=== PATIENT | female | born 1995 | race Caucasian/White ===

== ENCOUNTER 2020-12-05 11:30 | Outpatient (RCR) | payer MEDICAID, SELFPAY ==
[2020-11-28 14:13] VITALS: BP 110/70
== END 2021-01-06 11:55 | disposition home or self-care (01) ==
LOC: HO.PTCHIC 11:30
PROVIDERS: PCP Family Medicine; Visit Provider Family Medicine
DX: R42 Dizziness and giddiness (principal)
CPT/HCPCS: 95992; 97110; 97161

== ENCOUNTER 2021-04-30 14:30 | Outpatient (RCR) | payer MEDICAID, SELFPAY | END 2021-04-30 14:55 | disposition home or self-care (01) | LOC: HO.OT 14:30 | PROVIDERS: PCP Family Medicine; Visit Provider Registered Nurse Community Health | DX: M25.641 Stiffness of right hand, not elsewhere classified (principal); R43.1 Parosmia; H53.8 Other visual disturbances | CPT/HCPCS: 97110; 97165; 97760 ==

== ENCOUNTER 2021-09-25 19:16 | Emergency (ER) | payer MEDICAID, SELFPAY ==
[2021-09-25 19:36] VITALS: BP 117/70; PULSE 99; RESP 16; TEMP 36.3; O2SAT 99; BMI 31.4
[2021-09-25 20:00] LABS: MANUAL DIFF FLAG NO
[2021-09-25 20:02] LABS: Basophils Percent Auto 0.1 % (0-2); Eosinophils Percent Auto 0.6 % (0-4); Hematocrit 42.5 % (37.0-47.0); Hemoglobin 14.3 g/dl (12.0-16.0); Imm Gran Abs Auto 0.02 X10*3/uL (0.00-0.03); Imm Gran Pct Auto 0.3 % (0.0-0.4); Lymphocytes Absolute Auto 0.5 X10*3/uL (1.2-4.9); Lymphocytes Percent Auto 7.9 % (20-40); Mean Corpuscular HGB Conc 33.6 g/dl (31.0-35.0); Mean Corpuscular Hemoglobin 29.4 pg (27.0-33.0); Mean Corpuscular Volume 87.3 fL (80.0-98.0); Mean Platelet Volume 10.3 fL (9.4-12.3); Monocytes Absolute Auto 0.4 X10*3/uL (0.1-1.2); Monocytes Percent Auto 5.8 % (2-11); Neutrophils Absolute Auto 5.7 x10*3/uL (2.0-8.3); Neutrophils Percent Auto 85.3 % (45-73); Platelet Count 274 X10*3/uL (160-400); Red Blood Count 4.87 X10*6/uL (4.20-5.50); Red Cell Distribution Width 12.4 % (11.0-16.0); White Blood Count 6.7 X10*3/uL (4.8-10.8)
[2021-09-25 20:16] LABS: Alanine Aminotransferase 11 U/L (0-31); Albumin Level 4.1 g/dL (3.5-5.0); Alkaline Phosphatase 81 U/L (39-117); Anion Gap 12 (12-20); Aspartate Amino Transferase 17 U/L (5-31); Bilirubin Direct 0.2 mg/dL (0.0-0.5); Bilirubin Total 0.4 mg/dL (0.0-1.0); Blood Urea Nitrogen 13 mg/dL (9-16); Carbon Dioxide 26 mmol/L (22-29); Chloride 103 mmol/L (96-108); Creatinine Clr Calc Pharmacy 116.6; Estimated Glomerular Filt Rate > 60; Glucose Random 116 mg/dL (60-115); Lipase 9 U/L (8-78); Sodium 137 mmol/L (135-145); Total Protein 7.7 g/dL (6.5-8.0)
[2021-09-25 20:19] LABS: COVID-19 Test Negative (Negative)
== END 2021-09-26 01:31 | disposition left against medical advice (07) ==
PROVIDERS: Emergency Provider Emergency Medicine
DX: R11.2 Nausea with vomiting, unspecified (principal); Z20.822 Contact with and (suspected) exposure to COVID-19; R19.7 Diarrhea, unspecified
CPT/HCPCS: 36415; 80053; 82248; 83690; 85025; 87635; 99282; 99283

== ENCOUNTER → 2022-02-12 14:04 | Outpatient (BNVA) | payer MEDICAID, SELFPAY | PROVIDERS: Visit Provider Advanced Practice Midwife | DX: Z34.90 Encounter for supervision of normal pregnancy, unspecified, unspecified trimester (principal) | CPT/HCPCS: 81025; 99212 ==

== ENCOUNTER 2022-02-19 10:27 | Outpatient (REF) | payer MEDICAID, SELFPAY ==
--- NOTE | ~2022-02-19 | US_ITS ---
EXAMINATION: OBSTETRICAL ULTRASOUND, FIRST TRIMESTER HISTORY: 26-year-old at 10.2 weeks of gestation LMP: 12/09/2021 COMPARISON: None TECHNIQUE: Real time transabdominal imaging with color and M-mode Doppler. FINDINGS: A single, live IUP CRL of 37 mm c/w 10.5wks is noted. Heart Rate: 163 beats per minute. Both maternal ovaries are seen and appear normal. GESTATIONAL AGE: 1. GA from LMP: 10.2 wks 2. GA from AUA: 10.5 wks ESTIMATED DATE OF DELIVERY: 1. IVELISSE from LMP: 09/15/2022 2. IVELISSE from AUA: 09/12/2022 US/US OB <= 14 weeks fetus IMPRESSION: 1. A single live IUP 2. Size equals dates 3. Normal ovaries Thank you very much for this referral. This note was generated with a voice recognition program. Please excuse any errors which may have been overlooked during my review of this note. Sometimes these errors may affect the content or meaning of a given sentence.
== END 2022-02-19 10:28 | disposition home or self-care (01) ==
LOC: HO.US 10:27
PROVIDERS: PCP Family Medicine; Visit Provider Advanced Practice Midwife
DX: Z34.91 Encounter for supervision of normal pregnancy, unspecified, first trimester (principal); Z3A.10 10 weeks gestation of pregnancy
CPT/HCPCS: 76801

== ENCOUNTER → 2022-02-26 14:07 | Outpatient (BNVA) | payer MEDICAID, SELFPAY | PROVIDERS: PCP Family Medicine; Visit Provider Advanced Practice Midwife | DX: Z34.91 Encounter for supervision of normal pregnancy, unspecified, first trimester (principal) | CPT/HCPCS: 99212 ==

== ENCOUNTER 2022-03-05 11:31 | Outpatient (REF) | payer MEDICAID, SELFPAY ==
--- NOTE | ~2022-03-05 | US_ITS ---
EXAMINATION: OBSTETRICAL ULTRASOUND, FIRST TRIMESTER HISTORY: 26-year-old at 12.2 weeks of gestation NT screening COMPARISON: 02/19/2022 TECHNIQUE: Real time transabdominal imaging with color and M-mode Doppler. FINDINGS: A single, live IUP CRL of 63.9 mm c/w 12.6wks is noted. Heart Rate: 150 beats per minute. Normal yolk sac seen. NT was 1.18.mm. NB Present The embryo appears sonographically wnl for this GA. Both maternal ovaries are seen and appear normal. GESTATIONAL AGE: 1. Established GA: 12.2 wks 2. GA from [facility]: 12.6 wks ESTIMATED DATE OF DELIVERY: 1. Established IVELISSE: 09/15/2022 2. IVELISSE from [facility]: 09/11/2022 US/US OB 1T nuc measure IMPRESSION: 1. A single live IUP 2. Size equals dates 3. NT of 1.18 mm I reviewed the ultrasound findings along with significance of NT measurement. The NT of less than 3mm is generally reassuring. However, the sensitivity for T21 detection is only 60%. She already had N IPT which showed low risk.
== END 2022-03-05 11:32 | disposition home or self-care (01) ==
LOC: HO.US 11:31
PROVIDERS: Visit Provider Advanced Practice Midwife
DX: Z34.91 Encounter for supervision of normal pregnancy, unspecified, first trimester (principal); Z3A.12 12 weeks gestation of pregnancy
CPT/HCPCS: 76813

== ENCOUNTER 2022-03-16 14:09 | Outpatient (REF) | payer MEDICAID, SELFPAY ==
[2022-03-16 16:48] LABS: Hematocrit 39.3 % (37.0-47.0); Hemoglobin 13.3 g/dl (12.0-16.0); Mean Corpuscular HGB Conc 33.8 g/dl (31.0-35.0); Mean Corpuscular Hemoglobin 29.2 pg (27.0-33.0); Mean Corpuscular Volume 86.4 fL (80.0-98.0); Mean Platelet Volume 10.1 fL (9.4-12.3); Platelet Count 266 X10*3/uL (160-400); Red Blood Count 4.55 X10*6/uL (4.20-5.50); White Blood Count 9.6 X10*3/uL (4.8-10.8)
[2022-03-16 17:12] LABS: Glucose 1 Hour PP 50gm Dose 86 mg/dL (60-140)
[2022-03-16 18:32] LABS: CT PCR NOT DETECTED (Not Detect.); NG PCR NOT DETECTED (Not Detect.)
[2022-03-16 18:40] LABS: Amphetamine Screen Urine Not Detected (Not Detect); Barbiturates, Urine Not Detected (Not Detect); Benzodiazepines Screen Urine Not Detected (Not Detect); Cannabinoid Screen Urine Not Detected (Not Detect); Cocaine Screen Urine Not Detected (Not Detect); Fentanyl, urine Not Detected (Not Detect); Opiate Screen Urine Not Detected (Not Detect); Phencyclidine Screen Urine Not Detected (Not Detect)
[2022-03-17 05:35] LABS: HBsAGNum1 0.15 S/CO (0.00-0.99); HIV AB/AG Nonreactive (Nonreactive); HIV Num 1 0.05 S/CO (0.00-0.99); Hepatitis B Surface Antigen Negative (Negative); ~HepC Num1 0.04 S/CO (0.00-0.79); ~Hepatitis C Antibody Nonreactive (Nonreactive)
[2022-03-17 05:57] LABS: Syphilis Screen Nonreactive (Nonreactive)
[2022-03-17 08:42] LABS: Varicella IgG Antibody <135.00 index
[2022-03-17 11:04] LABS: BV Int Neg Control Negative (Negative); BV Int Pos Control Positive (Positive)
[2022-03-17 17:37] LABS: Rubella IgG Antibody 1.04 Index
== END 2022-03-16 14:10 | disposition home or self-care (01) ==
LOC: HO.LAB 14:09
PROVIDERS: PCP Family Medicine; Visit Provider Advanced Practice Midwife
DX: Z34.91 Encounter for supervision of normal pregnancy, unspecified, first trimester (principal); Z3A.13 13 weeks gestation of pregnancy
CPT/HCPCS: 80307; 81003; 85027; 86762; 86780; 86787; 86803; 86850; 86900; 87086; 87340; 87389; 87480; 87491; 87510; 87591; 87660; 88142; 99212

== ENCOUNTER → 2022-04-15 13:35 | Outpatient (BNVA) | payer MEDICAID, SELFPAY | PROVIDERS: PCP Family Medicine; Visit Provider Obstetrics & Gynecology | DX: Z34.92 Encounter for supervision of normal pregnancy, unspecified, second trimester (principal) | CPT/HCPCS: 99212 ==

== ENCOUNTER → 2022-05-13 13:32 | Outpatient (BNVA) | payer MEDICAID, SELFPAY | PROVIDERS: PCP Family Medicine; Visit Provider Advanced Practice Midwife | DX: Z34.82 Encounter for supervision of other normal pregnancy, second trimester (principal); Z3A.22 22 weeks gestation of pregnancy | CPT/HCPCS: 99212 ==

== ENCOUNTER → 2022-06-10 13:15 | Outpatient (BNVA) | payer MEDICAID, SELFPAY | PROVIDERS: PCP Family Medicine; Visit Provider Advanced Practice Midwife | DX: O43.112 Circumvallate placenta, second trimester (principal); O44.22 Partial placenta previa NOS or without hemorrhage, second trimester; O09.292 Supervision of pregnancy with other poor reproductive or obstetric history, second trimester; Z3A.26 26 weeks gestation of pregnancy | CPT/HCPCS: 99212 ==

== ENCOUNTER 2022-06-24 13:09 | Outpatient (REF) | payer MEDICAID, SELFPAY ==
[2022-06-24 15:26] LABS: Hematocrit 37.2 % (37.0-47.0); Hemoglobin 12.4 g/dl (12.0-16.0); Mean Corpuscular HGB Conc 33.3 g/dl (31.0-35.0); Mean Corpuscular Hemoglobin 29.4 pg (27.0-33.0); Mean Corpuscular Volume 88.2 fL (80.0-98.0); Mean Platelet Volume 10.4 fL (9.4-12.3); Platelet Count 258 X10*3/uL (160-400); Red Blood Count 4.22 X10*6/uL (4.20-5.50); Red Cell Distribution Width 13.2 % (11.0-16.0); White Blood Count 11.5 X10*3/uL (4.8-10.8)
[2022-06-24 15:43] LABS: Glucose 1 Hour PP 50gm Dose 69 mg/dL (60-140)
[2022-06-25 09:23] LABS: Syphilis Screen Nonreactive (Nonreactive)
== END 2022-06-24 13:10 | disposition home or self-care (01) ==
LOC: HO.LAB 13:09
PROVIDERS: PCP Family Medicine; Visit Provider Advanced Practice Midwife
DX: O43.113 Circumvallate placenta, third trimester (principal); O44.23 Partial placenta previa NOS or without hemorrhage, third trimester; Z3A.28 28 weeks gestation of pregnancy
CPT/HCPCS: 36415; 82950; 85027; 86780; 99212

== ENCOUNTER → 2022-07-15 11:38 | Outpatient (BNVA) | payer MEDICAID, SELFPAY | PROVIDERS: PCP Family Medicine; Visit Provider Advanced Practice Midwife | DX: O43.113 Circumvallate placenta, third trimester (principal); O44.23 Partial placenta previa NOS or without hemorrhage, third trimester; Z3A.31 31 weeks gestation of pregnancy | CPT/HCPCS: 81003; 99212 ==

== ENCOUNTER → 2022-07-30 11:10 | Outpatient (BNVA) | payer MEDICAID, SELFPAY | PROVIDERS: PCP Family Medicine; Visit Provider Advanced Practice Midwife | DX: Z23 Encounter for immunization (principal); O43.113 Circumvallate placenta, third trimester; O44.23 Partial placenta previa NOS or without hemorrhage, third trimester; Z3A.33 33 weeks gestation of pregnancy | CPT/HCPCS: 81003; 90471; 90715; 99212 ==

== ENCOUNTER 2022-09-01 15:56 | Outpatient (REF) | payer MEDICAID, SELFPAY ==
[2022-09-02 15:00] LABS: CT PCR NOT DETECTED (Not Detect.); NG PCR NOT DETECTED (Not Detect.)
[2022-09-03 12:06] LABS: Allergic to Penicillin? No
== END 2022-09-01 15:57 | disposition home or self-care (01) ==
LOC: HO.LNP 15:56
PROVIDERS: PCP Family Medicine; Visit Provider Advanced Practice Midwife
DX: Z34.93 Encounter for supervision of normal pregnancy, unspecified, third trimester (principal); Z3A.38 38 weeks gestation of pregnancy
CPT/HCPCS: 0353U; 81003; 87150; 99212

== ENCOUNTER 2022-09-01 16:05 | Outpatient (REF) | payer MEDICAID, SELFPAY | END 2022-09-01 16:06 | disposition home or self-care (01) | LOC: HO.LAB 16:05 | PROVIDERS: Visit Provider Advanced Practice Midwife | DX: Z13.89 Encounter for screening for other disorder (principal) ==

== ENCOUNTER → 2022-09-09 13:15 | Outpatient (BNVA) | payer MEDICAID, SELFPAY | PROVIDERS: PCP Family Medicine; Visit Provider Advanced Practice Midwife | DX: Z34.83 Encounter for supervision of other normal pregnancy, third trimester (principal); Z3A.39 39 weeks gestation of pregnancy | CPT/HCPCS: 81003; 99212 ==

== ENCOUNTER → 2022-10-22 14:50 | Outpatient (BNVA) | payer MEDICAID, SELFPAY | PROVIDERS: PCP Family Medicine; Visit Provider Advanced Practice Midwife | DX: Z39.2 Encounter for routine postpartum follow-up (principal); Z39.1 Encounter for care and examination of lactating mother | CPT/HCPCS: 99212 ==

== ENCOUNTER 2023-06-15 13:22 | Outpatient (REF) | payer MEDICAID, SELFPAY ==
[2023-06-15 16:50] LABS: CT PCR NOT DETECTED (Not Detect.); NG PCR NOT DETECTED (Not Detect.)
[2023-06-16 13:55] LABS: BV Int Neg Control Negative (Negative); BV Int Pos Control Positive (Positive)
== END 2023-06-15 13:23 | disposition home or self-care (01) ==
LOC: HO.LNP 13:22
PROVIDERS: PCP Family Medicine; Visit Provider Advanced Practice Midwife
DX: Z39.1 Encounter for care and examination of lactating mother (principal); Z12.4 Encounter for screening for malignant neoplasm of cervix
CPT/HCPCS: 0353U; 87480; 87510; 87660; 99395

== ENCOUNTER 2023-06-15 13:22 | Outpatient (AMB) | payer MEDICAID, SELFPAY ==
--- NOTE | 2023-06-15 13:24 | A.OFFVIS_ITS ---
Intake Vital Signs 06/15/23 13:26 Height 5 ft 3 in Weight 188 lb BMI 33.3 BP 116/66 Intake Visit Reasons: MANAGEMENT ADVISOR annual exam Intake Note: no concerns Apprenticeship Representative Required: No Information Interpreted: non-clinical & clinical Party Plan Sales Director: Party Plan Sales Director Present (Deisy SOMMER) Accompanied by: Self / Same As Patient Allergies No Known Allergies [No Known Allergies*] Allergy (Verified 06/15/23 13:27) Is last menstrual period known: No () HPI MANAGEMENT ADVISOR annual exam HPI Details Patient is here with her 9-month-old baby for deaf interpreter annual exam. She delivered her baby at [facility] and had no problems was a normal . She is exclusively babies about every 4-5 hours at this point she has toe in with the idea of chewing solid food but just playfully. The patient's menses have not returned she has not had sex since before giving and says she is not in the mood but if she did she would use condoms. She thinks it is because she is . She is not interested in any other method of control other than condoms she has used other methods in the past and did not like their side effects. She is trying to get good nutrition to be able to provide what her baby needs but was hoping she would lose weight she did lose about 10 lb but has not lost much yet. [facility] Family History (Updated 06/15/23 @ 13:28 by Deisy Tracey [facility]) Father Diabetes Social History Household Members: Significant Other and Children Both parents involved: Yes Housing: House Are you a primary vp care management to a significant other at home: No Do you presently have visiting nurse or other home services: No 75 years or older and lives alone: No Alcohol intake: never Patient Tobacco Use Status: Never used Tobacco Special pam needs: No Agree to transfusion: Yes Current occupational status: unemployed Sexual orientation: Straight/Heterosexual Gender identity: Female Female Reproductive History Menstrual Age of Menarche: 13 Total pregnancies: 4 Full term: 3 Number of Living Children: 3 Ab spontaneous: 1 Date of last pap smear: 03/18/22 Physical Exam Vital Signs: BMI result Body Mass Index 33.3 Const General: healthy appearing, comfortable, no acute distress, well developed and alert Nutritional Appearance: average body habitus Orientation/consciousness: patient oriented x3 Limitations: no limitations HEENT Head: Yes normocephalic Neck Neck: Yes normal visual inspection Chest Other: Breasts are pendulous nipples alta it and in good condition, they are not exactly full last nursing was 4-5 hours ago. Patient states they are getting less full than the used to but the baby still satisfied and is clearly gaining weight. Chest palpation & inspection: normal inspection of the chest Breast/axilla inspection: normal inspection of the breasts and normal inspection of the axillae Breast/axilla palpation: normal palpation of the breasts and normal palpation of the axillae Resp Effort & Inspection: normal respiratory effort GI Inspection: Yes normal to inspection, No Abdominal wall edema and No distended Palpation (GI): Soft to palpation and nontender Other: Speculum exam within normal limits vaginal mucosa moist well estrogenized normal clear healthy mucous cervix multiparous and closed uterus small midposition to anteverted nontender good tone with Kegel General: Yes bladder normal to palpation External Female Exam: normal external appearance and normal appearance of the urethra Speculum Exam - Vagina: normal appearance of the vagina, normal palpation and normal vaginal discharge Speculum Exam - Cervix: normal appearance of the cervix, normal palpation and nontender Bimanual exam- vagina & uterus: normal bimanual exam, normal palpation, uterine size normal, bladder normal to palpation, consistency normal, normal palpation, uterine mobility normal, uterine shape normal, No Cervical tenderness present, non-tender and no cervical motion tenderness Bimanual Exam- Adnexa, other: normal adnexae, no masses, normal and No adnexal tenderness Neuro General: patient oriented x3 Results Reviewed Results Reviewed: Name: Navya Andrews Age/Sex: 26/F Attending: Alcira Cline CNM : 1995 Submitted by: Alcira Cline CNM Copies to: Connie Whitfield MD MR #: [id number] Status: DEP REF Collected: 03/16/22 Location: .LAB Received: 03/18/22 Interpretation Satisfactory for evaluation. No endocervical cells seen. Negative for intraepithelial lesion or malignancy. Clinical Information LMP: Previous PAP test: 01/25/18, WNL Material Received ThinPrep-Cervical Copies To Alcira Cline [address] Pineda [address] [place] [id number] Connie Whitfield MD [address] [place] [address] Electronically Signed By: VALERIO Duran ([facility]) 03/26/22 1234 The Pap Test is a screening procedure with the inherent possibility of both false negative and false positive results. Results should be interpreted in the context of historic and current clinical findings. Reliability of the Pap Test is enhanced by performing the test on a regular repetitive basis. Patient: Navya Andrews Age/Sex: 26/F MR#: [id number] Page 1 of 1 Assessment & Plan Assessment & Plan (1) care and examination of lactating mother: Code(s): Z39.1 - Encounter for care and examination of lactating mother (2) Cervical cancer screening: Comment: 03/16/2022 Pap equals negative. Code(s): Z12.4 - Encounter for screening for malignant neoplasm of cervix (3) Well woman exam with routine gynecological exam: Code(s): Z01.419 - Encounter for gynecological examination (general) (routine) without abnormal findings (4) Family planning counseling: Code(s): Z30.09 - Encounter for other general counseling and advice on contraception Plan -----Discussed in this visit the following: healthy balanced diet, regular and consistent exercise, getting recommended health screens, doing the best she can for her particular health concerns, kegel exercises, pap smear screening and followup recommendations, mammography screening and SBE, normal changes in cycles in her life stage--- .----I reviewed available options for Control Methods and their associated side effect profiles. In particular, we discussed the method most of interest to her. Discussed and weaning and return to fertility. Corrected miss information that she cannot get until her periods have come back. Reminded that she can get at least a couple of weeks before a possible potential menses because ovulation occurs before the menstrual. Since she does not appear to have the atrophic vaginal mucosa that is consistent with discussed that she should be watchful for return of libido and and sure condom use unless she does want to have another baby which she does not at this time. She has this baby with her who is 9 months and a 3-year-old and a 5-year-old at home. She says she is getting plenty of sleep and she is not having any other concerns she had no issues with anemia or any other problems in the . We will see her in 1 year unless she returns for any other need smear was not done in 2021 she had had unprotected sex since the last time cultures were done so sti were repeated today Denies any worries or concerns or depression issues and says she is getting plenty of sleep. She will continue with condoms. Coding Level of Care Code Est Pt Prev Care 18-39y(14729) Diagnoses care and examination of lactating mother Z39.1 Cervical cancer screening Z12.4 Well woman exam with routine gynecological exam Z01.419 Family planning counseling Z30.09
[2023-06-15 13:26] VITALS: BP 116/66; BMI 33.3
== END 2023-06-15 14:11 | disposition home or self-care (01) ==
PROVIDERS: PCP Family Medicine; Visit Provider Advanced Practice Midwife
DX: Z01.419 Encounter for gynecological examination (general) (routine) without abnormal findings (principal)
CPT/HCPCS: 99395

== ENCOUNTER 2023-11-08 16:15 | Outpatient (REF) | payer MEDICAID, SELFPAY ==
[2023-11-09 14:13] LABS: H Pylori Breath Test Negative (Negative)
== END 2023-11-08 16:16 | disposition home or self-care (01) ==
LOC: HO.HHCLNP 16:15
PROVIDERS: Visit Provider Student in an Organized Health Care Education/Training Program
DX: K21.9 Gastro-esophageal reflux disease without esophagitis (principal)
CPT/HCPCS: 83013

== ENCOUNTER 2024-01-17 14:54 | Outpatient (REF) | payer MEDICAID, SELFPAY ==
[2024-01-17 16:19] LABS: Estimated Average Glucose 108 mg/dL; Hemoglobin A1c % 5.4 % (<6.0)
[2024-01-17 16:30] LABS: Alanine Aminotransferase 10 U/L (0-31); Albumin Level 4.1 g/dL (3.5-5.0); Alkaline Phosphatase 80 U/L (39-117); Anion Gap 11 (12-20); Aspartate Amino Transferase 17 U/L (5-31); Bilirubin Total 0.4 mg/dL (0.0-1.0); Blood Urea Nitrogen 11 mg/dL (9-16); Calcium 9.7 mg/dL (8.4-10.2); Carbon Dioxide 28 mmol/L (22-29); Chloride 104 mmol/L (96-108); Cholesterol 199 mg/dL (<200); Estimated Glomerular Filt Rate > 60; Glucose Random 100 mg/dL (60-115); HDL Cholesterol 46 mg/dL (>40); LDL Cholesterol Calculated 141 mg/dL (<100); Potassium 3.8 mmol/L (3.3-5.1); Sodium 139 mmol/L (135-145); Total Protein 7.7 g/dL (6.5-8.0); Triglycerides 62 mg/dL (<150)
[2024-01-17 16:45] LABS: TSH reflex Free T4 0.55 uIU/mL (0.32-4.0)
[2024-01-17 17:50] LABS: Reflex LDLD? No
[2024-01-23 14:34] LABS: Venous Lead <1.0 mcg/dL (<3.5)
== END 2024-01-17 14:55 | disposition home or self-care (01) ==
LOC: HO.HHCL 14:54
PROVIDERS: Visit Provider Family Medicine
DX: E66.9 Obesity, unspecified (principal); Z77.011 Contact with and (suspected) exposure to lead
CPT/HCPCS: 36415; 80053; 80061; 83036; 83655; 84443

== ENCOUNTER 2024-07-23 14:24 | Outpatient (REF) | payer MEDICAID, SELFPAY ==
[2024-07-23 16:58] LABS: MANUAL DIFF FLAG NO
[2024-07-23 17:02] LABS: Basophils Percent Auto 0.4 % (0-2); Eosinophils Absolute Auto 0.1 X10*3/uL (0.0-0.4); Hematocrit 42.4 % (37.0-47.0); Lymphocytes Absolute Auto 1.3 X10*3/uL (1.2-4.9); Lymphocytes Percent Auto 28.3 % (20-40); Mean Corpuscular Hemoglobin 28.9 pg (27.0-33.0); Mean Corpuscular Volume 87.6 fL (80.0-98.0); Mean Platelet Volume 10.6 fL (9.4-12.3); Monocytes Absolute Auto 0.3 X10*3/uL (0.1-1.2); Monocytes Percent Auto 7.4 % (2-11); Neutrophils Absolute Auto 2.8 x10*3/uL (2.0-8.3); Neutrophils Percent Auto 61.9 % (45-73); Platelet Count 256 X10*3/uL (160-400); Red Blood Count 4.84 X10*6/uL (4.20-5.50); Red Cell Distribution Width 13.5 % (11.0-16.0); Retic HGB Equivalent 33.2 pg (30.0-35.0); Reticulocyte Percent 0.9 % (0.5-1.8); Reticulocytes Absolute 0.044 X10*6/uL (0.026-0.095); White Blood Count 4.5 X10*3/uL (4.8-10.8)
[2024-07-23 17:11] LABS: Prothrombin Time 12.1 SEC (10.9-12.4)
[2024-07-23 17:25] LABS: Alanine Aminotransferase 19 U/L (0-31); Alkaline Phosphatase 57 U/L (39-117); Anion Gap 11 (12-20); Aspartate Amino Transferase 22 U/L (5-31); Bilirubin Total 0.3 mg/dL (0.0-1.0); Blood Urea Nitrogen 16 mg/dL (9-16); Calcium 9.3 mg/dL (8.4-10.2); Carbon Dioxide 28 mmol/L (22-29); Chloride 104 mmol/L (96-108); Estimated Glomerular Filt Rate > 60; Glucose Random 88 mg/dL (60-115); Iron 76 mcg/dL (30-160); Percent Iron Saturation 31 % (15-50); Potassium 4.3 mmol/L (3.3-5.1); Sodium 139 mmol/L (135-145); Total Iron Binding Capacity 242 mcg/dL (228-428); Total Protein 7.5 g/dL (6.5-8.0); Unsaturated Iron Binding 166 ug/dL
[2024-07-23 17:44] LABS: Ferritin 109 ng/mL (10-122); TSH reflex Free T4 0.76 uIU/mL (0.32-4.0)
[2024-07-23 17:52] LABS: Vitamin B12 526 pg/mL (200-900)
== END 2024-07-23 14:25 | disposition home or self-care (01) ==
LOC: HO.HHCL 14:24
PROVIDERS: Visit Provider Family Medicine
DX: R63.4 Abnormal weight loss (principal); T14.8XXA Other injury of unspecified body region, initial encounter
CPT/HCPCS: 36415; 80053; 82607; 82728; 82746; 83540; 84443; 85025; 85045; 85610

== ENCOUNTER 2024-08-03 14:30 | Outpatient (AMB) | payer MEDICAID, SELFPAY ==
--- NOTE | 2024-08-03 14:28 | MHC.OFFVIS ---
Vital Signs 08/03/24 14:39 Height 5 ft 3 in Weight 144 lb BMI 25.5 BP 100/62 Intake Visit Reasons: DATA VISUALIZATION DEVELOPER annual exam/DO NOT RS Settlement Worker Required: No Settlement Worker Services: Settlement Worker Present Information Interpreted: clinical only Hardwood Floor Installation Helper: Hardwood Floor Installation Helper Present Allergies No Known Allergies [No Known Allergies*] Allergy (Verified 08/03/24 14:39) Medication List - Last Reconciled 08/03/24 by Alcira Cline CNM No Known Home Meds Is last menstrual period known: No (since 2021,no menses(breast feeding)) Do you need a note to return to daycare/school/sports/work: No HPI HPI DATA VISUALIZATION DEVELOPER annual exam/DO NOT RS: Details: Patient here for hand bander exam. She is still nursing baby who is almost 2 old she was nursing a little less but now her daughter is asking for the boobie more and more and more just for comfort says not much is coming out at this time. She has not had a period since either. She nursed all her children and they weaned around the similar time. She has kind of ready for to be done because any time she sits her daughter wants to nurse. She recently lost about 60 lb by doing the keto diet. She has been eating pretty well she does not much sugar at all. 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 She has been trying to connect up with other parents who were home school and they may to neck by [employer] then nothing ever happens she has been going to different libraries and museums and she follows with home school curriculum that are online. She and her are so tired that they her barely intimate at all and few months ago was the 1st time they were. She is ambivalent about whether not she wants another baby or not but is open to it if it happens currently the most she wants to do for control is pull out. If she gets she gets and she would not be unhappy about it. She does remember what the symptoms of ovulation were. She has 0/and no worries about STDs. Her 3 children age from 7-2. She delivered her last child at [facility] because the birthing center her closed she needed to be induced because of increased fluid looking back in the record she also had a circumvallate placenta. Reviewed that we still do not have a birthing center here and why we can do care here for ease of communication and planning of deliveries sometimes it maybe best to get all care where she is going to deliver. PFSH Family History Father Diabetes Social History Household Members: Significant Other and Children Both parents involved: Yes Housing: House Are you a primary critical care nurse practitioner to a significant other at home: No Do you presently have visiting nurse or other home services: No 75 years or older and lives alone: No Alcohol intake: never Patient Tobacco Use Status: Never used Tobacco Special pam needs: No Agree to transfusion: Yes Current occupational status: unemployed Sexual orientation: Straight/Heterosexual Gender identity: Female Female Reproductive History Menstrual Age of Menarche: 13 control method: none Total pregnancies: 3 Full term: 3 Date of last pap smear: 03/18/22 (negative) Physical Exam Vital Signs: Last Vital Signs BP 100/62 08/03/24 14:39 BMI result Body Mass Index 25.5 Const General: healthy appearing, comfortable, no acute distress, well developed and alert Nutritional Appearance: average body habitus Orientation/consciousness: patient oriented x3 Limitations: no limitations HEENT Head: Yes normocephalic Neck Neck: Yes normal visual inspection Chest Chest palpation & inspection: normal inspection of the chest Breast/axilla inspection: normal inspection of the breasts and normal inspection of the axillae Breast/axilla palpation: normal palpation of the breasts and normal palpation of the axillae Resp Effort & Inspection: normal respiratory effort GI Inspection: Yes normal to inspection, No Abdominal wall edema and No distended Palpation (GI): Soft to palpation and nontender Other: Normal external exam vagina is pink and moist with clear moist discharge cervix multiparous pink smooth mobile nontender uterus mobile nontender midposition adnexa nontender good muscle tone. Discussed that her vaginal and cervical mucus do not seem to demonstrate hypoestrogenic state consistent with so reviewed symptoms of ovulation to be alert to , and invited conscious decision making. General: Yes bladder normal to palpation External Female Exam: normal external appearance and normal appearance of the urethra Speculum Exam - Vagina: normal appearance of the vagina, normal palpation and normal vaginal discharge Speculum Exam - Cervix: normal appearance of the cervix, normal palpation and nontender Bimanual exam- vagina & uterus: normal bimanual exam, normal palpation, uterine size normal, bladder normal to palpation, consistency normal, normal palpation, uterine mobility normal, uterine shape normal, No Cervical tenderness present, non-tender and no cervical motion tenderness Bimanual Exam- Adnexa, other: normal adnexae, no masses, normal and No adnexal tenderness Neuro General: patient oriented x3 Results Reviewed Results Reviewed: verito: Navya Andrews Age/Sex: 26/F Attending: Alcira Cline CNM : 1995 Submitted by: Alcira Cline CNM Copies to: Connie Whitfield MD MR #: [id number] Status: DEP REF Collected: 03/16/22 Location: .LAB Received: 03/18/22 Interpretation Satisfactory for evaluation. No endocervical cells seen. Negative for intraepithelial lesion or malignancy. Clinical Information LMP: Previous PAP test: 01/25/18, WNL Material Received ThinPrep-Cervical Copies To Alcira Cline CNM [address] [place] [address] Dr. Pineda [address] [place] [address] [phone] Connie Whitfield MD [address] [place] [phone] Electronically Signed By: VALERIO Duran ([facility]) 03/26/22 1233 The Pap Test is a screening procedure with the inherent possibility of both false negative and false positive results. Results should be interpreted in the context of historic and current clinical findings. Reliability of the Pap Test is enhanced by performing the test on a regular repetitive basis. Patient: Navya Andrews Age/Sex: 26/F MR#: [id number] Page 1 of 1 Assessment & Plan Assessment & Plan (1) Cervical cancer screening: Comment: 03/16/2022 Pap equals negative. Code(s): Z12.4 - Encounter for screening for malignant neoplasm of cervix Category: Medical (2) Well woman exam with routine gynecological exam: Code(s): Z01.419 - Encounter for gynecological examination (general) (routine) without abnormal findings Category: Medical (3) Family planning counseling: Code(s): Z30.09 - Encounter for other general counseling and advice on contraception Category: Medical (4) Lactating mother: Code(s): Z39.1 - Encounter for care and examination of lactating mother Category: Medical Plan Patient here for hand bander exam. She is still nursing baby who is almost 2 old she was nursing a little less but now her daughter is asking for the boobie more and more and more just for comfort says not much is coming out at this time. She has not had a period since either. She nursed all her children and they weaned around the similar time. She has kind of ready for to be done because any time she sits her daughter wants to nurse. She recently lost about 60 lb by doing the keto diet. She has been eating pretty well she does not much sugar at all. 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 She has been trying to connect up with other parents who were home school and they may to neck by Facebook then nothing ever happens she has been going to different libraries and museums and she follows with home school curriculum that are online. She and her are so tired that they her barely intimate at all and few months ago was the 1st time they were. She is ambivalent about whether not she wants another baby or not but is open to it if it happens currently the most she wants to do for control is pull out. If she gets she gets and she would not be unhappy about it. She does remember what the symptoms of ovulation were. She has 0/and no worries about STDs. Her 3 children age from 7-2. She delivered her last child at [facility] because the birthing center her closed she needed to be induced because of increased fluid looking back in the record she also had a circumvallate placenta. Reviewed that we still do not have a birthing center here and why we can do care here for ease of communication and planning of deliveries sometimes it maybe best to get all care where she is going to deliver. Reviewed self-care reviewed parenting concerns / weaning issues . Reviewed her openness to and recommend taking vitamins while she is nursing but also for her own benefit but also in case she gets in the near future I am send the prescription to her pharmacy she lives in [place] but still uses the [facility] pharmacy. Reviewed hypoestrogenic state that can sometimes be present with mothers along with delayed fertility however her vaginal environment did not exhibit this and I recommend being alert to signs and symptoms of ovulation which may be pending already. Discussed control methods and she is not interested in any. Medications: New PNV,calcium [id number] acid 27 mg iron- 1 mg ( Vitamins Plus Low Iron) 1 tab PO DAILY 100 tabs 4RF Coding Level of Care Code Est Pt Prev Care 18-39y(52826) Diagnoses Cervical cancer screening Z12.4 Well woman exam with routine gynecological exam Z01.419 Family planning counseling Z30.09 Lactating mother Z39.1
[2024-08-03 14:39] VITALS: BP 100/62; BMI 25.5
== END 2024-08-03 15:46 | disposition home or self-care (01) ==
PROVIDERS: PCP Family Medicine; Visit Provider Advanced Practice Midwife
DX: Z01.419 Encounter for gynecological examination (general) (routine) without abnormal findings (principal); Z30.09 Encounter for other general counseling and advice on contraception
CPT/HCPCS: 99395; 99459

== ENCOUNTER → 2024-08-03 14:30 | Outpatient (BNVA) | payer MEDICAID, SELFPAY | PROVIDERS: PCP Family Medicine; Visit Provider Advanced Practice Midwife | DX: Z01.419 Encounter for gynecological examination (general) (routine) without abnormal findings (principal); Z30.09 Encounter for other general counseling and advice on contraception | CPT/HCPCS: 99395; 99459 ==

== ENCOUNTER 2025-01-21 15:25 | Outpatient (REF) | payer MEDICAID, SELFPAY ==
[2025-01-21 16:36] LABS: Vitamin D 25-OH Total 39.5 ng/mL (>30)
== END 2025-01-21 15:26 | disposition home or self-care (01) ==
LOC: HO.HHCL 15:25
PROVIDERS: Visit Provider Family Medicine
DX: Z91.89 Other specified personal risk factors, not elsewhere classified (principal)
CPT/HCPCS: 36415; 82306